=== PATIENT | female | born 1995 | race Caucasian/White ===

== ENCOUNTER → 2022-01-16 08:36 | Outpatient (BNVA) | payer OTHER, SELFPAY | PROVIDERS: Visit Provider Advanced Practice Midwife | DX: Z32.01 Encounter for pregnancy test, result positive (principal) | CPT/HCPCS: 81025; 99212 ==

== ENCOUNTER 2022-01-19 10:03 | Outpatient (REF) | payer OTHER, SELFPAY ==
--- NOTE | ~2022-01-19 | US_ITS ---
EXAMINATION: OBSTETRICAL ULTRASOUND, FIRST TRIMESTER HISTORY: 26-year-old at 8.3 weeks of gestation Uncertain LMP LMP: Unsure COMPARISON: None in this TECHNIQUE: Real time transabdominal imaging with color and M-mode Doppler. FINDINGS: A single, live IUP CRL of 17.1 mm c/w 8.2wks is noted. Heart Rate: 167 beats per minute. Both maternal ovaries are seen and appear normal. GESTATIONAL AGE: 1. GA from LMP: 8.3 wks 2. GA from AUA: 8.2 wks ESTIMATED DATE OF DELIVERY: 1. GUILLERMO from LMP: 08/28/2022 2. GUILLERMO from AUA: 08/29/2022 US/US OB <= 14 weeks fetus IMPRESSION: 1. A single live IUP 2. Size equals dates, CRL corresponds to the weeks of gestation. 3. Best GUILLERMO 08/28/2022 4. Normal ovaries Thank you very much for this referral. This note was generated with a voice recognition program. Please excuse any errors which may have been overlooked during my review of this note. Sometimes these errors may affect the content or meaning of a given sentence.
== END 2022-01-19 10:04 | disposition home or self-care (01) ==
LOC: HO.US 10:03
PROVIDERS: Visit Provider Advanced Practice Midwife
DX: Z34.91 Encounter for supervision of normal pregnancy, unspecified, first trimester (principal); Z3A.08 8 weeks gestation of pregnancy
CPT/HCPCS: 76801